=== PATIENT | male | born 1945 | race Caucasian/White ===

== ENCOUNTER 2020-12-13 10:40 | Emergency (ER) | payer MEDICARE ==
--- NOTE | 2020-12-13 11:36 | EDM.PDOC ---
ED HPI GENERAL MEDICAL PROBLEM - General Chief Complaint: Lower Extremity Injury/Pain Stated Complaint: BLOOD CLOT RT LED Time Seen by Provider: 12/13/20 11:00 Source of Information: Reports: Patient, Family History Limitations: Reports: No Limitations - History of Present Illness INITIAL COMMENTS - FREE TEXT/NARRATIVE: 75-year-old male who was sent over from the clinic after being diagnosed with a right leg DVT extending into the thigh. He is on no anticoagulation at this time, but also has no shortness of breath, tachycardia, cough, hemoptysis or other complaints. He is planning on heading back to home in [place] in 2 days. He has been on anticoagulation in the past when he had a DVT when diagnosed with bladder cancer which apparently he is "cancer free". Onset: Gradual Duration: Day(s): (Symptoms have been worsening for the past 3 to 4 days) Location: Reports: Lower Extremity, Right Associated Symptoms: Reports: No Other Symptoms - Related Data Allergies Allergy/AdvReac Type Severity Reaction Status Date / Time Penicillins Allergy Cannot Verified 12/13/20 11:10 Remember Home Meds: Home Meds Apixaban [Eliquis] 5 mg PO DAILY 14 Days #14 tablet 12/13/20 [Rx] Past Medical History HEENT History: Reports: Impaired Vision - Infectious Disease History Infectious Disease History: Reports: Chicken Pox, Measles, Mumps - Past Surgical History GI Surgical History: Reports: Appendectomy Social & Family History - Tobacco Use Tobacco Use Status *Q: Never Tobacco User - Caffeine Use Caffeine Use: Reports: Coffee - Recreational Drug Use Recreational Drug Use: No Review of Systems - Review of Systems Review Of Systems: See Below Constitutional: Denies: Fever Respiratory: Reports: No Symptoms Cardiovascular: Reports: No Symptoms. Denies: Palpitations GI/Abdominal: Denies: Abdominal Pain, Diarrhea, Vomiting Skin: Reports: Erythema (Erythematous patches on the right lower extremity) Neurological: Denies: Paresthesia ED EXAM, GENERAL - Physical Exam Exam: See Below Exam Limited By: No Limitations General Appearance: Alert, No Apparent Distress Head: Atraumatic Respiratory/Chest: No Respiratory Distress, Lungs Clear Cardiovascular: Regular Rate, Rhythm. No: Tachycardia GI/Abdominal: Soft, Non-Tender Extremities: Other (Diffuse tense edema of the right lower extremity) Neurological: Alert, Oriented, Normal Cognition, No Motor/Sensory Deficits Psychiatric: Normal Affect, Normal Mood Skin Exam: Warm, Dry, Other (Patient does have some inflamed erythematous patches on the right lower leg) Course - Vital Signs Last Recorded V/S: Last Vital Signs Temp 98.2 F 12/13/20 11:15 Pulse 72 12/13/20 11:15 Resp 18 12/13/20 11:15 BP 176/94 H 12/13/20 11:15 Pulse Ox 98 12/13/20 11:15 - Re-Assessments/Exams Free Text/Narrative Re-Assessment/Exam: 12/13/20 14:15 Patient was started on Eliquis 5 mg daily for the next 14 days, encouraged to fill the prescription for antibiotic that was prescribed from the walk-in clinic physician, and recheck with his primary provider within the next 7 to 10 days when he returns to [place]. Departure - Departure Time of Disposition: 11:46 Disposition: Home, Self-Care 01 Clinical Impression: Right leg DVT Qualifiers: Affected thrombotic vein of extremity: femoral Chronicity: acute Qualified Code(s): I82.411 - Acute embolism and thrombosis of right femoral vein - Discharge Information Prescriptions: Apixaban [Eliquis] 5 mg PO DAILY 14 Days #14 tablet Instructions: Deep Vein Thrombosis Referrals: Ronan Martinez MD [Primary Care Provider] - Forms: ED Department Discharge Care Plan Goals: Take 1 dose of the anticoagulation medicine Eliquis daily as prescribed until you can get rechecked by her primary provider when you are home. You have 2 weeks supply medication, please be rechecked before that. Recheck at any time if you feel you are worsening such as shortness of breath, chest pain, fever or other concerns. Dr. Tovar has prescribed you an antibiotic, consider taking that as directed as well. Sepsis Event Note (ED) - Evaluation Sepsis Screening Result: No Definite Risk - Focused Exam Vital Signs: Vital Signs Temp Pulse Resp BP Pulse Ox 12/13/20 11:15 98.2 F 72 18 176/94 H 98 12/13/20 11:05 98.2 F 72 18 176/94 H 98
== END 2020-12-13 11:46 | disposition home or self-care (01) ==
LOC: JP.ED 10:40
DX: I82.411 Acute embolism and thrombosis of right femoral vein (principal); Z88.0 Allergy status to penicillin; Z79.01 Long term (current) use of anticoagulants
CPT/HCPCS: 99283